=== PATIENT | male | born 1945 | race Caucasian/White ===

== ENCOUNTER → 2017-02-08 | Outpatient (REF) | payer MEDICARE | LOC: M LAB REF 16:19 | PROVIDERS: ATTEND Nurse Practitioner Adult Health | DX: D51.9 Vitamin B12 deficiency anemia, unspecified (principal) ==

== ENCOUNTER → 2017-05-09 | Outpatient (CLI) | payer MEDICARE ==
--- NOTE | 2017-05-14 18:35 | SLEEPCENT ---
DATE OF PROCEDURE: 05/09/2017 REFERRING PHYSICIAN: Ratna Juarez Nocturnal polysomnography was performed for evaluation of sleep physiology in this patient with a history of excessive somnolence and nonrestorative sleep. 8 hours and 42 minutes of data were reviewed. There were 431 minutes of sleep identified. Sleep latency was short at 9 minutes. Rapid eye movement (REM) latency was prolonged at 358 minutes. Sleep architecture initially showed poor progression with only one REM period appeciated. Overall sleep efficiency was 83%. There was a significant reduction in REM time. The patient's EKG showed a sinus rhythm with an average heart rate of 52 beats per minute. EEG showed reasonably normal waveforms for awake and sleep. There were 40 respiratory events identified of 10 seconds in duration or greater for an apnea/hypopnea index of 5.6. The events were mixed in character, not exclusive to sleep stage nor body posture. Arousals from respiratory events in total occurred 6.5 times per hour. There were no significant oxygen desaturations. There was significant limb activity, but arousals from limb events were few. IMPRESSION: Mild obstructive sleep apnea syndrome (G47.33). Apnea/hypopnea index 5.6. RECOMMENDATION: The patient should be encouraged to return to the sleep disorder center for pressure therapy. In the interim, alcohol and sedative avoidance should be practiced and caution exercised during the operation of motor vehicles.
== END ==
LOC: M SLEEP 19:29
PROVIDERS: ATTEND Nurse Practitioner Adult Health
DX: G47.30 Sleep apnea, unspecified (principal)

== ENCOUNTER → 2018-02-11 | Outpatient (REF) | payer MEDICARE ==
[2018-02-11 19:48] LABS: VITAMIN B12 LEVEL 988 PG/ML (247-911)
== END ==
LOC: M LAB REF 17:54
DX: D51.9 Vitamin B12 deficiency anemia, unspecified (principal)
CPT/HCPCS: 82607

== ENCOUNTER 2018-04-27 17:39 | Emergency (ER) | payer MEDICARE ==
[2018-04-27 18:20] LABS: BASO % 0.4 % (0.0-1.0); EOS # 0.2 10^3/uL (0.0-0.50); EOS % 1.6 % (0.0-3.0); HEMATOCRIT 36.1 % (42.0-52.0); HEMOGLOBIN 12.1 g/dl (13.5-17.5); IMMATURE GRANULOCYTE % 0.4 % (0-3.0); LYMPH # 0.5 10^3/uL (1.5-4.5); LYMPH % 5.8 % (24.0-44.0); MEAN CORPUSCULAR HEMOGLOBIN 31.4 pg (27.0-33.0); MEAN CORPUSCULAR HGB CONC 33.5 g/dl (32.0-36.5); MEAN CORPUSCULAR VOLUME 93.8 fl (80.0-96.0); MONO # 0.9 10^3/uL (0.0-0.8); MONO % 9.6 % (0.0-5.0); NEUTROPHILS # 7.7 10^3/uL (1.8-7.7); NEUTROPHILS % 82.2 % (36.0-66.0); PLATELET COUNT, AUTOMATED 232 10^3/uL (150-450); RED BLOOD COUNT 3.85 10^6/uL (4.30-6.10); RED CELL DISTRIBUTION WIDTH 11.9 % (11.5-14.5); WHITE BLOOD COUNT 9.4 10^3/uL (4.0-10.0)
[2018-04-27] MEDS: NS 500 ML IV (18:33)
[2018-04-27 18:34] LABS: INR 1.05; PARTIAL THROMBOPLASTIN TIME 23.2 SECONDS (25.4-37.6); PROTHROMBIN TIME 13.9 SECONDS (12.1-14.4)
[2018-04-27 19:04] LABS: ALBUMIN 2.8 GM/DL (3.2-5.2); ALBUMIN/GLOBULIN RATIO 0.85 (1.00-1.93); ALT/SGPT 22 U/L (12-78); ANION GAP 10 MEQ/L (8-16); AST/SGOT 22 U/L (7-37); BILIRUBIN,DIRECT 0.2 MG/DL (0.0-0.2); BILIRUBIN,TOTAL 0.6 MG/DL (0.2-1.0); BLOOD UREA NITROGEN 18 MG/DL (7-18); CALCIUM LEVEL 8.2 MG/DL (8.8-10.2); CARBON DIOXIDE LEVEL 24 MEQ/L (21-32); CHLORIDE LEVEL 106 MEQ/L (98-107); CREATININE FOR GFR 0.91 MG/DL (0.70-1.30); GLOMERULAR FILTRATION RATE > 60.0 (>42); GLUCOSE, FASTING 103 MG/DL (70-100); LIPASE 45 U/L (73-393); POTASSIUM SERUM 4.4 MEQ/L (3.5-5.1); SODIUM LEVEL 140 MEQ/L (136-145); TOTAL PROTEIN 6.1 GM/DL (6.4-8.2); TROPONIN I < 0.02 NG/ML (< 0.10)
[2018-04-27 19:09] LABS: ALKALINE PHOSPHATASE 62 U/L (45-117); CK-MB VALUE MASS 1.7 NG/ML (<3.6); CPK CREATINE PHOSPHOKINASE 287 U/L (39-308); FREE T4 1.39 NG/DL (0.76-1.46); MB/CK RELATIVE INDEX 0.59 (< OR =4); NT-PRO BNP 266 PG/ML (<125); THYROID STIMULATING HORMONE 0.995 uIU/ML (0.358-3.740)
[2018-04-27] MEDS: cefTRIAXone SOD 2 GM in D5W MINI-BAG PLUS 50 ML IV (20:17)
[2018-04-27] MEDS: AZITHROMYCIN 250 MG TAB PO (20:17)
== END 2018-04-27 21:04 | disposition home or self-care (01) ==
LOC: M ED 17:39
DX: J18.9 Pneumonia, unspecified organism (principal); I10 Essential (primary) hypertension; E78.5 Hyperlipidemia, unspecified; G47.33 Obstructive sleep apnea (adult) (pediatric)
CPT/HCPCS: J0696

== ENCOUNTER → 2018-05-09 | Outpatient (REF) | payer MEDICARE | LOC: M LAB REF 12:45 | DX: R19.7 Diarrhea, unspecified (principal) | CPT/HCPCS: 87507 ==

== ENCOUNTER → 2018-09-05 | Outpatient (REF) | payer MEDICARE ==
[~2018-09-05] MED LIST: ATOR1TAB21; AUGM875T28 PO; AZIT-12 PO; DONEPEZIL PO; LASI20TA3 PO; LOSA50TA88; POTA10TA67 PO
== END ==
LOC: M LAB REF 13:07
PROVIDERS: ATTEND Nurse Practitioner Adult Health
DX: R35.0 Frequency of micturition (principal)

== ENCOUNTER → 2018-09-26 | Outpatient (CLI) | payer MEDICARE ==
--- NOTE | 2018-09-26 13:08 | REP ---
RIGHT SHOULDER, THREE VIEWS: HISTORY: Pain. There is no acute fracture or dislocation. There is mild narrowing of the joint spaces. Calcification is present lateral to the head of the humerus. This represents ligamentous or tendon calcification. IMPRESSION:Degenerative change as described above. Electronically Signed by Noel Sawyer MD 09/26/2018 02:00 P
== END ==
LOC: M ADAMS 10:58
PROVIDERS: ATTEND Physician Assistant Medical
DX: M75.30 Calcific tendinitis of unspecified shoulder (principal); M25.511 Pain in right shoulder

== ENCOUNTER → 2019-03-31 | Outpatient (CLI) | payer MEDICARE ==
--- NOTE | 2019-03-31 12:19 | REP ---
Right rib series including PA chest: There is slight deformity of the 2nd ribs laterally bilaterally, likely congenital variation, old healed rib fractures are considered less likely. No acute rib fractures are identified. No clavicle fracture. PA chest: There is no pneumothorax, hemothorax or pulmonary contusion. Lung sierra are clear. Cardiac size is normal. The darcy and mediastinum are unremarkable. Impression: No rib fractures are identified. Negative PA chest. Electronically Signed by Sam Ureña MD 03/31/2019 12:10 P
== END ==
LOC: M ADAMS 09:44
PROVIDERS: ATTEND Physician Assistant Medical
DX: S20.211A Contusion of right front wall of thorax, initial encounter (principal); W18.30XA Fall on same level, unspecified, initial encounter; Y92.009 Unspecified place in unspecified non-institutional (private) residence as the place of occurrence of the external cause

== ENCOUNTER → 2019-10-31 | Outpatient (CLI) | payer MEDICARE ==
--- NOTE | 2019-10-31 14:12 | REP ---
Clinical: Acute bronchitis. Technique: PA and lateral views of the chest. Comparison: 04/27/2018. Findings: Cardiomegaly. Diffuse chronic interstitial changes are appreciated. Superimposed bronchitis cannot be excluded. No focal consolidation. No effusion. No pneumothorax. Impression: Chronic changes. No focal consolidation or effusion. Electronically Signed by Paulo Zazueta MD 10/31/2019 02:04 P
== END ==
LOC: M ADAMS 13:50
PROVIDERS: ATTEND Physician Assistant
DX: J20.9 Acute bronchitis, unspecified (principal)

== ENCOUNTER → 2020-09-22 | Outpatient (CLI) | payer MEDICARE ==
[~2020-09-22] MED LIST changes: +ALBU8.5H INH; +ASPI1TAB22 PO; +B-122500 PO; +MEMA7CAP PO; +MONT5TAB2 PO; +NITR0.4S14 SL; +prevagen PO
== END ==
LOC: M LABSMTC 12:48
PROVIDERS: ATTEND Anesthesiology
DX: Z01.812 Encounter for preprocedural laboratory examination (principal); Z20.822 Contact with and (suspected) exposure to COVID-19

== ENCOUNTER 2020-09-27 11:51 | Day surgery (SDC) | payer MEDICARE ==
[~2020-09-27] VITALS: Ht 167.6 cm; Wt 77.3 kg
[~2020-09-27 11:51] MED LIST changes: +NS 1,000 ML IV ONE
[2020-09-27] MEDS ORDERED: propofoL 200 MG/20 ML VIAL As Ordered ONE (13:10)
[2020-09-27] MEDS ORDERED: LIDOCAINE 2% 100MG/5ML SDV (FOR ANES.) As Ordered ONE (13:10)
--- NOTE | 2020-09-27 13:35 | ROOR ---
Patient Name: Michael Greene Procedure Date: 09/27/2020 12:45 PM Date of : 1945 Age: 75 Room: [facility] Gender: Male Note Status: Finalized Procedure: Upper GI endoscopy Indications: Dysphagia, Abnormal UGI series Providers: Marbin Dumas MD Referring MD: Jerilyn Daniel NP Requesting Provider: Medicines: Monitored Anesthesia Care Complications: No immediate complications. Procedure: Pre-Anesthesia Assessment: - Prior to the procedure, a History and Physical was performed, and patient medications and allergies were reviewed. The patient is competent. The risks and benefits of the procedure and the sedation options and risks were discussed with the patient. All questions were answered and informed consent was obtained. Patient identification and proposed procedure were verified by the physician, the nurse and the anesthesiologist in the procedure room. Mental Status Examination: alert and oriented. Airway Examination: normal oropharyngeal airway and neck mobility. Respiratory Examination: clear to auscultation. CV Examination: normal. Prophylactic Antibiotics: The patient does not require prophylactic antibiotics. Prior Anticoagulants: The patient has taken no previous anticoagulant or antiplatelet agents. ASA Grade Assessment: II - A patient with mild systemic disease. After reviewing the risks and benefits, the patient was deemed in satisfactory condition to undergo the procedure. The anesthesia plan was to use monitored anesthesia care (MAC). Immediately prior to administration of medications, the patient was re-assessed for adequacy to receive sedatives. The heart rate, respiratory rate, oxygen saturations, blood pressure, adequacy of pulmonary ventilation, and response to care were monitored throughout the procedure. The physical status of the patient was re-assessed after the procedure. The Endoscope was introduced through the mouth, and advanced to the second part of duodenum. The upper GI endoscopy was accomplished without difficulty. The patient tolerated the procedure well. Findings: LA Grade D (one or more mucosal breaks involving at least 75% of esophageal circumference) esophagitis with no bleeding was found 35 to 37 cm from the incisors. Biopsies were taken with a cold forceps for histology. Verification of patient identification for the specimen was done by the physician and nurse using the patient's name, date and medical record number. Estimated blood loss was minimal. One benign-appearing, intrinsic moderate (circumferential scarring or stenosis; an endoscope may pass) stenosis was found 35 cm from the incisors. This stenosis measured 1.2 cm (inner diameter) x 1 cm (in length). The stenosis was traversed. A TTS dilator was passed through the scope. Dilation with a 12-13.5-15 mm balloon dilator was performed to 15 mm. The dilation site was examined following endoscope reinsertion and showed mild mucosal disruption, moderate improvement in luminal narrowing and no perforation. A small hiatal hernia was present. Scattered moderate inflammation characterized by congestion (edema), erythema and granularity was found in the gastric antrum. Biopsies were taken with a cold forceps for Helicobacter pylori testing. Diffuse mucosal flattening was found in the duodenal bulb and in the second portion of the duodenum. Biopsies for histology were taken with a cold forceps for evaluation of celiac disease. Impression: - LA Grade D reflux esophagitis. Biopsied. - Benign-appearing esophageal stenosis. Dilated. - Small hiatal hernia. - Gastritis. Biopsied. - Flattened mucosa was found in the duodenum, suspicious for celiac disease. Biopsied. Recommendation: - Patient has a contact number available for emergencies. The signs and symptoms of potential delayed complications were discussed with the patient. Return to normal activities tomorrow. Written discharge instructions were provided to the patient. - High fiber diet. - Continue present medications. - Await pathology results. - Repeat upper endoscopy in 3 months to check healing and for retreatment. - Return to GI clinic in 2 months. - Return to primary care physician. Procedure Code(s): --- Professional --- 51142, Esophagogastroduodenoscopy, flexible, transoral; with transendoscopic balloon dilation of esophagus (less than 30 mm diameter) 62868, 59, Esophagogastroduodenoscopy, flexible, transoral; with biopsy, single or multiple Diagnosis Code(s): --- Professional --- K21.0, Gastro-esophageal reflux disease with esophagitis K22.2, Esophageal obstruction K44.9, Diaphragmatic hernia without obstruction or gangrene K29.70, Gastritis, unspecified, without bleeding K31.89, Other diseases of stomach and duodenum R13.10, Dysphagia, unspecified R93.3, Abnormal findings on diagnostic imaging of other parts of digestive tract CPT copyright 2019 [employer]. All rights reserved. The codes documented in this report are preliminary and upon family resource management specialist review may be revised to meet current compliance requirements. Marbin Dumas MD Marbin Dumas MD 09/27/2020 1:34:42 PM Electronically signed by Marbin Dumas MD Number of Addenda: 0 Note Initiated On: 09/27/2020 12:45 PM Estimated Blood Loss: Estimated blood loss was minimal.
[2020-09-27 13:45] VITALS: BP 165/77
== END 2020-09-27 13:58 | disposition home or self-care (01) ==
LOC: M OPP 11:51
PROVIDERS: ATTEND Internal Medicine Gastroenterology
DX: R13.10 Dysphagia, unspecified (principal); R93.3 Abnormal findings on diagnostic imaging of other parts of digestive tract; D13.1 Benign neoplasm of stomach; D13.39 Benign neoplasm of other parts of small intestine; K21.00 Gastro-esophageal reflux disease with esophagitis, without bleeding; K22.2 Esophageal obstruction; K44.9 Diaphragmatic hernia without obstruction or gangrene; K29.70 Gastritis, unspecified, without bleeding; K31.89 Other diseases of stomach and duodenum; I25.2 Old myocardial infarction; E78.5 Hyperlipidemia, unspecified; F03.90 Unspecified dementia, unspecified severity, without behavioral disturbance, psychotic disturbance, mood disturbance, and anxiety; J44.9 Chronic obstructive pulmonary disease, unspecified; Z87.891 Personal history of nicotine dependence; Z79.82 Long term (current) use of aspirin; Z79.899 Other long term (current) drug therapy; Z82.49 Family history of ischemic heart disease and other diseases of the circulatory system; Z84.1 Family history of disorders of kidney and ureter

== ENCOUNTER → 2021-01-04 | Outpatient (CLI) | payer MEDICARE ==
[~2021-01-04] MED LIST changes: -ATOR1TAB21; +ATOR1TAB21 PO; +MONT10TA10 PO; -MONT5TAB2 PO; -NS 1,000 ML IV ONE; +PANT40TA29 PO; +SUCR1ORA2 PO
== END ==
LOC: M LABSMTC 10:22
PROVIDERS: ATTEND Anesthesiology
DX: Z20.828 Contact with and (suspected) exposure to other viral communicable diseases (principal); Z11.59 Encounter for screening for other viral diseases

== ENCOUNTER 2021-01-09 08:56 | Day surgery (SDC) | payer MEDICARE ==
[~2021-01-09] VITALS: Ht 167.6 cm; Wt 77.6 kg
[~2021-01-09 08:56] MED LIST changes: +LIDOCAINE 2% 100MG/5ML SDV (FOR ANES.) As Ordered ONE; +NS 1,000 ML IV ONE; +fentaNYL 100 MCG/2 ML INJECTION (J3010) As Ordered ONE; +propofoL 500 MG/50 ML VIAL As Ordered ONE
[2021-01-09] MEDS ORDERED: propofoL 200 MG/20 ML VIAL As Ordered ONE (09:16)
--- NOTE | 2021-01-09 09:59 | ROOR ---
Patient Name: Michael Greene Procedure Date: 01/09/2021 9:25 AM Date of : 1945 Age: 75 Room: [facility] Gender: Male Note Status: Finalized Procedure: Upper GI endoscopy Indications: Dysphagia Providers: Marbin Dumas MD Referring MD: Jerilyn Daniel NP Requesting Provider: Medicines: Monitored Anesthesia Care Complications: No immediate complications. Procedure: Pre-Anesthesia Assessment: - Prior to the procedure, a History and Physical was performed, and patient medications and allergies were reviewed. The patient is competent. The risks and benefits of the procedure and the sedation options and risks were discussed with the patient. All questions were answered and informed consent was obtained. Patient identification and proposed procedure were verified by the physician, the nurse and the anesthesiologist in the procedure room. Mental Status Examination: alert and oriented. Airway Examination: normal oropharyngeal airway and neck mobility. Respiratory Examination: clear to auscultation. CV Examination: normal. Prophylactic Antibiotics: The patient does not require prophylactic antibiotics. Prior Anticoagulants: The patient has taken no previous anticoagulant or antiplatelet agents. ASA Grade Assessment: III - A patient with severe systemic disease. After reviewing the risks and benefits, the patient was deemed in satisfactory condition to undergo the procedure. The anesthesia plan was to use monitored anesthesia care (MAC). Immediately prior to administration of medications, the patient was re-assessed for adequacy to receive sedatives. The heart rate, respiratory rate, oxygen saturations, blood pressure, adequacy of pulmonary ventilation, and response to care were monitored throughout the procedure. The physical status of the patient was re-assessed after the procedure. The Endoscope was introduced through the mouth, and advanced to the second part of duodenum. The upper GI endoscopy was accomplished without difficulty. The patient tolerated the procedure well. Findings: Esophagitis with no bleeding was found in the distal esophagus. Biopsies were taken with a cold forceps for histology. Verification of patient identification for the specimen was done by the physician and nurse using the patient's name, date and medical record number. Estimated blood loss was minimal. A 10 mm scar was found in the distal esophagus. The scar tissue was healthy in appearance. Biopsies were taken with a cold forceps for histology. No gross lesions were noted in the entire examined stomach. The duodenal bulb and second portion of the duodenum were normal. Impression: - Reflux esophagitis. Rule out Bear's esophagus. Biopsied. - Scar in the distal esophagus. Biopsied. - No gross lesions in the stomach. - Normal duodenal bulb and second portion of the duodenum. Recommendation: - Patient has a contact number available for emergencies. The signs and symptoms of potential delayed complications were discussed with the patient. Return to normal activities tomorrow. Written discharge instructions were provided to the patient. - High fiber diet. - Continue present medications. - Follow an antireflux regimen. - Await pathology results. - Recommend acid suppression medication for 2 months. - Telephone GI clinic for pathology results in 2 weeks. - Return to primary care physician. - Return to GI clinic if persistent symptoms or new symptoms. Procedure Code(s): --- Professional --- 94856, Esophagogastroduodenoscopy, flexible, transoral; with biopsy, single or multiple Diagnosis Code(s): --- Professional --- K21.0, Gastro-esophageal reflux disease with esophagitis K22.8, Other specified diseases of esophagus R13.10, Dysphagia, unspecified CPT copyright 2019 [employer]. All rights reserved. The codes documented in this report are preliminary and upon marking devices assembler review may be revised to meet current compliance requirements. Marbin Dumas MD Marbin Dumas MD 01/09/2021 9:59:04 AM Electronically signed by Marbin Dumas MD Number of Addenda: 0 Note Initiated On: 01/09/2021 9:25 AM Estimated Blood Loss: Estimated blood loss was minimal.
--- NOTE | 2021-01-09 10:14 | ROOR ---
Patient Name: Michael Greene Procedure Date: 01/09/2021 9:25 AM Date of : 1945 Age: 75 Room: [facility] Gender: Male Note Status: Finalized Procedure: Colonoscopy Indications: Screening for colorectal malignant neoplasm Providers: Marbin Dumas MD Referring MD: Jerilyn Daniel NP Requesting Provider: Medicines: Monitored Anesthesia Care Complications: No immediate complications. Procedure: Pre-Anesthesia Assessment: - Prior to the procedure, a History and Physical was performed, and patient medications and allergies were reviewed. The patient is competent. The risks and benefits of the procedure and the sedation options and risks were discussed with the patient. All questions were answered and informed consent was obtained. Patient identification and proposed procedure were verified by the physician, the nurse and the anesthesiologist in the procedure room. Mental Status Examination: alert and oriented. Airway Examination: normal oropharyngeal airway and neck mobility. Respiratory Examination: clear to auscultation. CV Examination: normal. Prophylactic Antibiotics: The patient does not require prophylactic antibiotics. Prior Anticoagulants: The patient has taken no previous anticoagulant or antiplatelet agents. ASA Grade Assessment: III - A patient with severe systemic disease. After reviewing the risks and benefits, the patient was deemed in satisfactory condition to undergo the procedure. The anesthesia plan was to use monitored anesthesia care (MAC). Immediately prior to administration of medications, the patient was re-assessed for adequacy to receive sedatives. The heart rate, respiratory rate, oxygen saturations, blood pressure, adequacy of pulmonary ventilation, and response to care were monitored throughout the procedure. The physical status of the patient was re-assessed after the procedure. The Colonoscope was introduced through the anus and advanced to the terminal ileum, with identification of the appendiceal orifice and IC valve. The colonoscopy was performed without difficulty. The patient tolerated the procedure well. The quality of the bowel preparation was poor and inadequate. The terminal ileum, ileocecal valve, appendiceal orifice, and rectum were photographed. Scope insertion time was 3 minutes. Scope withdrawal time was 8 minutes. The total duration of the procedure was 12 minutes. Findings: The perianal and digital rectal examinations were normal. The terminal ileum appeared normal. A large amount of semi-liquid semi-solid stool was found from rectum to cecum, precluding visualization. Lavage of the area was performed using a large amount of sterile water, resulting in incomplete clearance with continued poor visualization. Non-bleeding external and internal hemorrhoids were found during retroflexion. The hemorrhoids were medium-sized. Impression: - Preparation of the colon was poor. - Preparation of the colon was inadequate. - The examined portion of the ileum was normal. - Stool from rectum to cecum. - Non-bleeding external and internal hemorrhoids. - No specimens collected. Recommendation: - Patient has a contact number available for emergencies. The signs and symptoms of potential delayed complications were discussed with the patient. Return to normal activities tomorrow. Written discharge instructions were provided to the patient. - High fiber diet. - Continue present medications. - Repeat colonoscopy in 1 year because the bowel preparation was poor and for screening purposes. - Return to GI clinic in 1 year. - Return to primary care physician. Procedure Code(s): --- Professional --- 06003, Colonoscopy, flexible; diagnostic, including collection of specimen(s) by brushing or washing, when performed (separate procedure) Diagnosis Code(s): --- Professional --- Z12.11, Encounter for screening for malignant neoplasm of colon K64.8, Other hemorrhoids CPT copyright 2019 [employer]. All rights reserved. The codes documented in this report are preliminary and upon service representative review may be revised to meet current compliance requirements. Marbin Dumas MD Marbin Dumas MD 01/09/2021 10:13:42 AM Electronically signed by Marbin Dumas MD Number of Addenda: 0 Note Initiated On: 01/09/2021 9:25 AM Estimated Blood Loss: Estimated blood loss: none.
[2021-01-09 10:20] VITALS: BP 137/66
== END 2021-01-09 10:36 | disposition home or self-care (01) ==
LOC: M OPP 08:56
PROVIDERS: ATTEND Internal Medicine Gastroenterology
DX: Z12.11 Encounter for screening for malignant neoplasm of colon (principal); K64.8 Other hemorrhoids; K21.00 Gastro-esophageal reflux disease with esophagitis, without bleeding; K22.8 Other specified diseases of esophagus; R13.10 Dysphagia, unspecified; I25.2 Old myocardial infarction; Z79.82 Long term (current) use of aspirin; Z79.899 Other long term (current) drug therapy; Z87.891 Personal history of nicotine dependence
CPT/HCPCS: 43239; 88305; G0121; J3010

== ENCOUNTER → 2021-03-01 | Outpatient (REF) | payer MEDICARE ==
[~2021-03-01] MED LIST changes: -LIDOCAINE 2% 100MG/5ML SDV (FOR ANES.) As Ordered ONE; -NS 1,000 ML IV ONE; -fentaNYL 100 MCG/2 ML INJECTION (J3010) As Ordered ONE; -propofoL 500 MG/50 ML VIAL As Ordered ONE
[2021-03-01 17:24] LABS: BACTERIA, URINE AUTO NEGATIVE (NEGATIVE); RBC, URINE AUTO 1 /HPF (0-3); SQUAMOUS EPITHELIAL CELL UR AU 0 /HPF (0-6); WBC, URINE AUTO 0 /HPF (0-3)
== END ==
LOC: M LAB REF 16:31
PROVIDERS: ATTEND Nurse Practitioner Adult Health
DX: R31.9 Hematuria, unspecified (principal)

== ENCOUNTER 2021-08-27 22:41 | Emergency (ER) | payer MEDICARE ==
[~2021-08-27] VITALS: Ht 167.6 cm; Wt 77.3 kg
[~2021-08-27 22:41] MED LIST changes: +LOSA50TA28; -LOSA50TA88; -MONT10TA10 PO; +MONT10TA97 PO
[2021-08-27 23:26] LABS: ABG BASE EXCESS 1.4 (-2.0-2.0); ABG HCO3 24.9 MEQ/L (22.0-26.0); ABG O2 SATURATION 97.8 % (95.0-99.0); ABG PARTIAL PRESSURE CO2 35.7 mmHg (35.0-45.0); ABG PARTIAL PRESSURE O2 109.2 mmHg (75.0-100.0); ABG STANDARD HCO3 25.7 MEQ/L (22.0-26.0); ABG pH (ARTERIAL) 7.461 UNITS (7.350-7.450)
[2021-08-27 23:41] LABS: BASO # 0.1 10^3/uL (0.0-0.2); BASO % 0.6 % (0.0-1.0); EOS # 0.3 10^3/uL (0.0-0.5); EOS % 2.8 % (0.0-3.0); HEMATOCRIT 41.2 % (42.0-52.0); HEMOGLOBIN 13.5 g/dl (13.5-17.5); LYMPH % 10.2 % (24.0-44.0); MEAN CORPUSCULAR HEMOGLOBIN 31.5 pg (27.0-33.0); MEAN CORPUSCULAR HGB CONC 32.8 g/dl (32.0-36.5); MEAN CORPUSCULAR VOLUME 96.3 fl (80.0-96.0); MONO # 0.9 10^3/uL (0.0-0.8); MONO % 9.2 % (2.0-8.0); NEUTROPHILS # 7.1 10^3/uL (1.5-8.5); NEUTROPHILS % 76.7 % (36.0-66.0); PLATELET COUNT, AUTOMATED 228 10^3/uL (150-450); RED BLOOD COUNT 4.28 10^6/uL (4.30-6.10); WHITE BLOOD COUNT 9.3 10^3/uL (4.0-10.0)
[2021-08-28 00:06] LABS: CK-MB VALUE MASS 1.2 NG/ML (<3.6); MB/CK RELATIVE INDEX 1.12 (< OR =4)
[2021-08-28 00:07] LABS: ALBUMIN 3.3 GM/DL (3.2-5.2); ALT/SGPT 21 U/L (12-78); BILIRUBIN,DIRECT 0.2 MG/DL (0.0-0.2); BILIRUBIN,TOTAL 0.4 MG/DL (0.2-1.0); BLOOD UREA NITROGEN 23 MG/DL (7-18); CALCIUM LEVEL 8.5 MG/DL (8.8-10.2); CARBON DIOXIDE LEVEL 30 MEQ/L (21-32); CHLORIDE LEVEL 107 MEQ/L (98-107); CREATININE FOR GFR 1.13 MG/DL (0.70-1.30); GLOMERULAR FILTRATION RATE > 60.0 (>42); GLUCOSE, FASTING 115 MG/DL (70-100); NT-PRO BNP 119 PG/ML (<125); POTASSIUM SERUM 4.3 MEQ/L (3.5-5.1); SODIUM LEVEL 143 MEQ/L (136-145); TOTAL PROTEIN 6.6 GM/DL (6.4-8.2)
[2021-08-28 00:08] LABS: RSV AMPLIFICATION NEGATIVE (NEGATIVE)
[2021-08-28] MEDS: ANEXSIA, NORCO 7.5MG/325MG TABLET(HYDROCODONE/APAP) PO ONE ×2 (01:50→02:39)
[2021-08-28] MEDS ORDERED: NORCO 5/325MG TABLET (BULK FOR ED) PO ONE (01:50)
[2021-08-28] MEDS ORDERED: HYDR-3713 PO (01:52)
[2021-08-28 02:10] VITALS: BP 132/70
== END 2021-08-28 03:35 | disposition home or self-care (01) ==
LOC: M ED 22:41
DX: S22.42XA Multiple fractures of ribs, left side, initial encounter for closed fracture (principal); X58.XXXA Exposure to other specified factors, initial encounter; Y92.9 Unspecified place or not applicable; Y93.9 Activity, unspecified; Y99.9 Unspecified external cause status; I70.0 Atherosclerosis of aorta; I25.10 Atherosclerotic heart disease of native coronary artery without angina pectoris; I25.2 Old myocardial infarction; J45.909 Unspecified asthma, uncomplicated; Z79.899 Other long term (current) drug therapy

== ENCOUNTER → 2022-02-14 | Outpatient (CLI) | payer MEDICARE ==
[~2022-02-14] MED LIST changes: +ADV250INH INH; +HYDR-3713 PO
== END ==
LOC: M LABSMTC 11:27
PROVIDERS: ATTEND Anesthesiology
DX: Z01.818 Encounter for other preprocedural examination (principal); Z11.52 Encounter for screening for COVID-19

== ENCOUNTER 2022-02-19 10:36 | Day surgery (SDC) | payer MEDICARE ==
[~2022-02-19] VITALS: Ht 167.6 cm; Wt 75.7 kg
[~2022-02-19 10:36] MED LIST changes: +LIDOCAINE 2% 100MG/5ML SDV (FOR ANES.) As Ordered ONE; +NS 1,000 ML IV ONE; +fentaNYL 100 MCG/2 ML INJECTION As Ordered ONE; +propofoL 500 MG/50 ML VIAL As Ordered ONE
[2022-02-19 14:00] VITALS: BP 153/70
== END 2022-02-19 14:25 | disposition home or self-care (01) ==
LOC: M OPP 10:36
PROVIDERS: ATTEND Internal Medicine Gastroenterology
DX: Z12.11 Encounter for screening for malignant neoplasm of colon (principal); D12.0 Benign neoplasm of cecum; D12.2 Benign neoplasm of ascending colon; K64.8 Other hemorrhoids; K21.00 Gastro-esophageal reflux disease with esophagitis, without bleeding; K22.2 Esophageal obstruction; R13.10 Dysphagia, unspecified
CPT/HCPCS: 43239; 43249; 45385; 88305; J3010

== ENCOUNTER 2023-01-20 21:19 | Observation (INO) | payer MEDICARE ==
[~2023-01-20] VITALS: Ht 167.6 cm; Wt 78.1 kg
[~2023-01-20 21:19] MED LIST changes: -LIDOCAINE 2% 100MG/5ML SDV (FOR ANES.) As Ordered ONE; -NS 1,000 ML IV ONE; -fentaNYL 100 MCG/2 ML INJECTION As Ordered ONE; -propofoL 500 MG/50 ML VIAL As Ordered ONE
[2023-01-20] MEDS ORDERED: ACETAMINOPHEN TAB 650MG DOSE (2X325MG) PO ONE (21:40)
[2023-01-20] MEDS ORDERED: NS 1,000 ML IV ONE (22:00)
[2023-01-20 22:10] LABS: BASO % 0.3 % (0.0-1.0); EOS # 0.1 10^3/uL (0.0-0.5); EOS % 1.1 % (0.0-3.0); HEMATOCRIT 38.9 % (42.0-52.0); HEMOGLOBIN 12.8 g/dl (13.5-17.5); LYMPH # 0.3 10^3/uL (1.5-5.0); MEAN CORPUSCULAR HEMOGLOBIN 32.1 pg (27.0-33.0); MEAN CORPUSCULAR HGB CONC 32.9 g/dl (32.0-36.5); MEAN CORPUSCULAR VOLUME 97.5 fl (80.0-96.0); MONO # 0.7 10^3/uL (0.0-0.8); MONO % 7.4 % (2.0-8.0); NEUTROPHILS # 8.3 10^3/uL (1.5-8.5); NEUTROPHILS % 87.8 % (36.0-66.0); PLATELET COUNT, AUTOMATED 191 10^3/uL (150-450); RED BLOOD COUNT 3.99 10^6/uL (4.30-6.10); WHITE BLOOD COUNT 9.4 10^3/uL (4.0-10.0)
[2023-01-20 22:35] LABS: LIPASE 15 U/L (12-53)
[2023-01-20 22:37] LABS: ALBUMIN 3.5 G/DL (3.2-5.2); ALKALINE PHOSPHATASE 69 U/L (46-116); ALT/SGPT < 9 U/L (7.0-40); AST/SGOT 20 U/L (<34); BILIRUBIN,DIRECT 0.2 MG/DL (<0.4); BILIRUBIN,TOTAL 0.6 MG/DL (0.3-1.2); BLOOD UREA NITROGEN 26 MG/DL (9-23); CALCIUM LEVEL 8.9 MG/DL (8.3-10.6); CARBON DIOXIDE LEVEL 25 MMOL/L (20-31); CHLORIDE LEVEL 105 MMOL/L (98-107); CREATININE FOR GFR 1.22 MG/DL (0.70-1.30); GLOMERULAR FILTRATION RATE > 60.0 (>42); GLUCOSE, FASTING 102 MG/DL (74-106); SODIUM LEVEL 141 MMOL/L (136-145); TOTAL PROTEIN 6.1 G/DL (5.7-8.2)
[2023-01-21] MEDS ORDERED: B-12100020 PO (02:27)
[2023-01-21] MEDS ORDERED: SYMB80INH PO (02:27)
[2023-01-21] MEDS ORDERED: FURO20TA2 PO (02:28)
[2023-01-21] MEDS ORDERED: HOME MED LIST COMPLETE! XX SCH (02:30)
[2023-01-21] MEDS ORDERED: COMBIVENT RESPIMAT 100-20MCG INHALER 4GM INH PRN (02:35)
[2023-01-21] MEDS ORDERED: BENZONATATE 100MG CAPSULE PO PRN (02:35)
[2023-01-21] MEDS: ACETAMINOPHEN TAB 650MG DOSE (2X325MG) PO PRN ×3 (04:48→21:36)
[2023-01-21 05:02] VITALS: BP 117/71
[2023-01-21 05:27] VITALS: O2SAT 92
[2023-01-21 06:00] LABS: BASO % 0.3 % (0.0-1.0); EOS % 0.5 % (0.0-3.0); HEMATOCRIT 36.2 % (42.0-52.0); HEMOGLOBIN 11.9 g/dl (13.5-17.5); LYMPH # 0.3 10^3/uL (1.5-5.0); LYMPH % 4.7 % (24.0-44.0); MEAN CORPUSCULAR HEMOGLOBIN 32.2 pg (27.0-33.0); MEAN CORPUSCULAR HGB CONC 32.9 g/dl (32.0-36.5); MEAN CORPUSCULAR VOLUME 97.8 fl (80.0-96.0); MONO # 0.7 10^3/uL (0.0-0.8); NEUTROPHILS # 5.1 10^3/uL (1.5-8.5); PLATELET COUNT, AUTOMATED 173 10^3/uL (150-450); WHITE BLOOD COUNT 6.2 10^3/uL (4.0-10.0)
[2023-01-21 06:15] LABS: INR 1.03; PROTHROMBIN TIME 13.7 SECONDS (12.5-14.5)
[2023-01-21 06:16] LABS: PARTIAL THROMBOPLASTIN TIME 29.1 SECONDS (24.8-34.2)
[2023-01-21 06:44] LABS: ALBUMIN 3.3 G/DL (3.2-5.2); ALKALINE PHOSPHATASE 59 U/L (46-116); ALT/SGPT 15 U/L (7.0-40); AST/SGOT 17 U/L (<34); BILIRUBIN,TOTAL 0.6 MG/DL (0.3-1.2); BLOOD UREA NITROGEN 26 MG/DL (9-23); CALCIUM LEVEL 8.4 MG/DL (8.3-10.6); CARBON DIOXIDE LEVEL 26 MMOL/L (20-31); CHLORIDE LEVEL 109 MMOL/L (98-107); CREATININE FOR GFR 1.14 MG/DL (0.70-1.30); GLOMERULAR FILTRATION RATE > 60.0 (>42); GLUCOSE, FASTING 109 MG/DL (74-106); MAGNESIUM LEVEL 1.9 MG/DL (1.8-2.4); POTASSIUM SERUM 3.8 MMOL/L (3.5-5.1); SODIUM LEVEL 139 MMOL/L (136-145); TOTAL PROTEIN 5.5 G/DL (5.7-8.2)
[2023-01-21] MEDS: PANTOPRAZOLE 40MG TAB (PROTONIX) PO SCH ×2 (08:42→21:24)
[2023-01-21] MEDS: ASPIRIN 325 MG TAB PO SCH (08:42)
[2023-01-21] MEDS: FUROSEMIDE 10MG PER 1/2 TABLET PO SCH (08:42)
[2023-01-21] MEDS: ENOXAPARIN 40MG/0.4ML SYRINGE (J1650 PER 10MG) SC SCH (08:43)
[2023-01-21] MEDS: NIRMATRELVIR/RITONAVIR (RENAL) CO-PACK (EUA) PO SCH ×2 (08:44→21:24)
[2023-01-21] MEDS ORDERED: NIRMATRELVIR/RITONAVIR CO-PACK (EMERGENCY USE AUTH) PO SCH (09:00)
[2023-01-21] MEDS ORDERED: MEMANTINE 5MG TABLET (NAMENDA) PO SCH (09:00)
[2023-01-21] MEDS: FORMOTEROL FUMARATE 20 MCG/2 ML INHALATION SOLUTION (PERFOROMIST) INH SCH ×2 (09:10→19:26)
[2023-01-21 10:29] LABS: D-DIMER QUANT 474.97 ng/ml (<500)
[2023-01-21] MEDS: MEMANTINE 5MG TABLET (NAMENDA) PO SCH (12:02)
[2023-01-21 15:00] VITALS: BP 121/58
[2023-01-21 21:00] VITALS: BP 133/58
[2023-01-21] MEDS: RAMELTEON 8 MG TAB (ROZEREM) PO PRN (21:25)
[2023-01-22] MEDS ORDERED: UNRESOLVED CLARIFICATION ENTRY XX SCH (00:01)
[2023-01-22 05:11] VITALS: BP 136/58
[2023-01-22] MEDS: FORMOTEROL FUMARATE 20 MCG/2 ML INHALATION SOLUTION (PERFOROMIST) INH SCH ×2 (07:26→19:13)
[2023-01-22] MEDS: PANTOPRAZOLE 40MG TAB (PROTONIX) PO SCH ×2 (08:59→20:10)
[2023-01-22] MEDS: ENOXAPARIN 40MG/0.4ML SYRINGE (J1650 PER 10MG) SC SCH (08:59)
[2023-01-22] MEDS: MEMANTINE 5MG TABLET (NAMENDA) PO SCH (09:00)
[2023-01-22] MEDS: FUROSEMIDE 10MG PER 1/2 TABLET PO SCH (09:00)
[2023-01-22] MEDS: ASPIRIN 325 MG TAB PO SCH (09:00)
[2023-01-22] MEDS: NIRMATRELVIR/RITONAVIR (RENAL) CO-PACK (EUA) PO SCH ×2 (09:01→20:10)
[2023-01-22 12:00] VITALS: BP 163/62
[2023-01-22 14:00] VITALS: BP 125/58
[2023-01-22] MEDS: RAMELTEON 8 MG TAB (ROZEREM) PO PRN (20:10)
[2023-01-22 20:30] VITALS: BP 114/54
[2023-01-23 05:25] VITALS: BP 117/61
[2023-01-23] MEDS: FORMOTEROL FUMARATE 20 MCG/2 ML INHALATION SOLUTION (PERFOROMIST) INH SCH ×2 (07:15→20:21)
[2023-01-23] MEDS: PANTOPRAZOLE 40MG TAB (PROTONIX) PO SCH ×2 (11:05→21:01)
[2023-01-23] MEDS: FUROSEMIDE 10MG PER 1/2 TABLET PO SCH (11:05)
[2023-01-23] MEDS: ENOXAPARIN 40MG/0.4ML SYRINGE (J1650 PER 10MG) SC SCH (11:05)
[2023-01-23] MEDS: MEMANTINE 5MG TABLET (NAMENDA) PO SCH (11:05)
[2023-01-23] MEDS: ASPIRIN 325 MG TAB PO SCH (11:06)
[2023-01-23] MEDS: NIRMATRELVIR/RITONAVIR (RENAL) CO-PACK (EUA) PO SCH ×2 (11:08→21:03)
[2023-01-23] MEDS: RAMELTEON 8 MG TAB (ROZEREM) PO PRN (21:01)
[2023-01-24 04:40] VITALS: BP 106/86
[2023-01-24] MEDS: FORMOTEROL FUMARATE 20 MCG/2 ML INHALATION SOLUTION (PERFOROMIST) INH SCH ×2 (08:34→20:00)
[2023-01-24] MEDS: ENOXAPARIN 40MG/0.4ML SYRINGE (J1650 PER 10MG) SC SCH (08:37)
[2023-01-24] MEDS: MEMANTINE 5MG TABLET (NAMENDA) PO SCH (08:37)
[2023-01-24] MEDS: PANTOPRAZOLE 40MG TAB (PROTONIX) PO SCH ×2 (08:37→20:02)
[2023-01-24] MEDS: ASPIRIN 325 MG TAB PO SCH (08:37)
[2023-01-24] MEDS: FUROSEMIDE 10MG PER 1/2 TABLET PO SCH (08:37)
[2023-01-24] MEDS: NIRMATRELVIR/RITONAVIR (RENAL) CO-PACK (EUA) PO SCH ×2 (08:39→20:05)
[2023-01-24] MEDS: RAMELTEON 8 MG TAB (ROZEREM) PO PRN (20:02)
[2023-01-25 05:40] VITALS: BP 118/41
[2023-01-25] MEDS: FORMOTEROL FUMARATE 20 MCG/2 ML INHALATION SOLUTION (PERFOROMIST) INH SCH ×2 (07:40→19:34)
[2023-01-25] MEDS: NIRMATRELVIR/RITONAVIR (RENAL) CO-PACK (EUA) PO SCH ×2 (10:22→21:39)
[2023-01-25] MEDS: ASPIRIN 325 MG TAB PO SCH (10:23)
[2023-01-25] MEDS: ACETAMINOPHEN TAB 650MG DOSE (2X325MG) PO PRN (10:23)
[2023-01-25] MEDS: MEMANTINE 5MG TABLET (NAMENDA) PO SCH (10:23)
[2023-01-25] MEDS: PANTOPRAZOLE 40MG TAB (PROTONIX) PO SCH ×2 (10:23→21:37)
[2023-01-25] MEDS: FUROSEMIDE 10MG PER 1/2 TABLET PO SCH (10:23)
[2023-01-25] MEDS: ENOXAPARIN 40MG/0.4ML SYRINGE (J1650 PER 10MG) SC SCH (10:24)
[2023-01-25] MEDS: RAMELTEON 8 MG TAB (ROZEREM) PO PRN (21:37)
[2023-01-26 06:31] VITALS: BP 148/67
[2023-01-26] MEDS: FORMOTEROL FUMARATE 20 MCG/2 ML INHALATION SOLUTION (PERFOROMIST) INH SCH ×2 (07:47→19:42)
[2023-01-26] MEDS: MEMANTINE 5MG TABLET (NAMENDA) PO SCH (08:54)
[2023-01-26] MEDS: ENOXAPARIN 40MG/0.4ML SYRINGE (J1650 PER 10MG) SC SCH (08:54)
[2023-01-26] MEDS: FUROSEMIDE 10MG PER 1/2 TABLET PO SCH (08:54)
[2023-01-26] MEDS: ASPIRIN 325 MG TAB PO SCH (08:54)
[2023-01-26] MEDS: PANTOPRAZOLE 40MG TAB (PROTONIX) PO SCH ×2 (08:54→22:08)
[2023-01-27 06:00] VITALS: BP 128/49
[2023-01-27] MEDS: FORMOTEROL FUMARATE 20 MCG/2 ML INHALATION SOLUTION (PERFOROMIST) INH SCH ×2 (07:10→19:15)
[2023-01-27] MEDS: MEMANTINE 5MG TABLET (NAMENDA) PO SCH (09:50)
[2023-01-27] MEDS: PANTOPRAZOLE 40MG TAB (PROTONIX) PO SCH ×2 (09:50→20:20)
[2023-01-27] MEDS: ASPIRIN 325 MG TAB PO SCH (09:50)
[2023-01-27] MEDS: ENOXAPARIN 40MG/0.4ML SYRINGE (J1650 PER 10MG) SC SCH (09:50)
[2023-01-27] MEDS: FUROSEMIDE 10MG PER 1/2 TABLET PO SCH (09:50)
[2023-01-28 06:00] VITALS: BP 117/46
[2023-01-28] MEDS: FORMOTEROL FUMARATE 20 MCG/2 ML INHALATION SOLUTION (PERFOROMIST) INH SCH ×2 (08:23→18:56)
[2023-01-28] MEDS: FUROSEMIDE 10MG PER 1/2 TABLET PO SCH (09:43)
[2023-01-28] MEDS: ASPIRIN 325 MG TAB PO SCH (09:43)
[2023-01-28] MEDS: MEMANTINE 5MG TABLET (NAMENDA) PO SCH (09:43)
[2023-01-28] MEDS: PANTOPRAZOLE 40MG TAB (PROTONIX) PO SCH ×2 (09:43→20:46)
[2023-01-28] MEDS: ENOXAPARIN 40MG/0.4ML SYRINGE (J1650 PER 10MG) SC SCH (09:44)
[2023-01-29 05:33] VITALS: BP 130/72
[2023-01-29] MEDS: FORMOTEROL FUMARATE 20 MCG/2 ML INHALATION SOLUTION (PERFOROMIST) INH SCH ×2 (07:21→19:34)
[2023-01-29] MEDS: ASPIRIN 325 MG TAB PO SCH (09:06)
[2023-01-29] MEDS: PANTOPRAZOLE 40MG TAB (PROTONIX) PO SCH ×2 (09:06→20:21)
[2023-01-29] MEDS: FUROSEMIDE 10MG PER 1/2 TABLET PO SCH (09:06)
[2023-01-29] MEDS: MEMANTINE 5MG TABLET (NAMENDA) PO SCH (09:06)
[2023-01-29] MEDS: ENOXAPARIN 40MG/0.4ML SYRINGE (J1650 PER 10MG) SC SCH (09:07)
[2023-01-30 05:47] VITALS: BP 134/59
[2023-01-30] MEDS: FUROSEMIDE 10MG PER 1/2 TABLET PO SCH (09:27)
[2023-01-30] MEDS: ENOXAPARIN 40MG/0.4ML SYRINGE (J1650 PER 10MG) SC SCH (09:27)
[2023-01-30] MEDS: ASPIRIN 325 MG TAB PO SCH (09:27)
[2023-01-30] MEDS: ATORVASTATIN 20 MG TAB PO SCH (09:28)
[2023-01-30] MEDS: MEMANTINE 5MG TABLET (NAMENDA) PO SCH (09:28)
[2023-01-30] MEDS: PANTOPRAZOLE 40MG TAB (PROTONIX) PO SCH ×2 (09:28→20:28)
[2023-01-30] MEDS: FORMOTEROL FUMARATE 20 MCG/2 ML INHALATION SOLUTION (PERFOROMIST) INH SCH ×2 (09:29→21:48)
[2023-01-31 06:00] VITALS: BP 130/57
[2023-01-31] MEDS: FORMOTEROL FUMARATE 20 MCG/2 ML INHALATION SOLUTION (PERFOROMIST) INH SCH (08:05)
[2023-01-31] MEDS: PANTOPRAZOLE 40MG TAB (PROTONIX) PO SCH (09:49)
[2023-01-31] MEDS: ASPIRIN 325 MG TAB PO SCH (09:49)
[2023-01-31] MEDS: ATORVASTATIN 20 MG TAB PO SCH (09:49)
[2023-01-31] MEDS: FUROSEMIDE 10MG PER 1/2 TABLET PO SCH (09:49)
[2023-01-31] MEDS: MEMANTINE 5MG TABLET (NAMENDA) PO SCH (09:49)
[2023-01-31] MEDS: ENOXAPARIN 40MG/0.4ML SYRINGE (J1650 PER 10MG) SC SCH (09:49)
== END 2023-01-31 13:54 ==
LOC: EDBD 21:19 → M ED 21:19 → INTOOBSV 01-21 02:31 → M ED INP 01-21 02:31 → M MSPAV 01-21 05:01
PROVIDERS: ADMIT Internal Medicine; ATTEND Internal Medicine
DX: G93.41 Metabolic encephalopathy (principal); U07.1 COVID-19; F03.90 Unspecified dementia, unspecified severity, without behavioral disturbance, psychotic disturbance, mood disturbance, and anxiety; I10 Essential (primary) hypertension; R60.0 Localized edema; E78.5 Hyperlipidemia, unspecified; I25.10 Atherosclerotic heart disease of native coronary artery without angina pectoris; J44.9 Chronic obstructive pulmonary disease, unspecified; K21.9 Gastro-esophageal reflux disease without esophagitis; Z79.02 Long term (current) use of antithrombotics/antiplatelets; Z79.899 Other long term (current) drug therapy
CPT/HCPCS: 36415; 70450; 71045; 80048; 80053; 80076; 81001; 83605; 83690; 83735; 84145; 85025; 85379; 85610; 85730; 87040; 87426; 87486; 87581; 87633; 87798; 93005; 93041; 93970; 94640; 96372; 96374; 97116; 97162; 97530; 99285; G0378; J1650; J7606

== ENCOUNTER → 2023-02-01 | Outpatient (REF) ==
[~2023-02-01] MED LIST changes: +B-12100020 PO; +FURO20TA2 PO; +SYMB80INH PO
[2023-02-01 07:24] LABS: HEMATOCRIT 37.5 % (42.0-52.0); HEMOGLOBIN 12.5 g/dl (13.5-17.5); MEAN CORPUSCULAR HEMOGLOBIN 31.8 pg (27.0-33.0); MEAN CORPUSCULAR HGB CONC 33.3 g/dl (32.0-36.5); MEAN CORPUSCULAR VOLUME 95.4 fl (80.0-96.0); PLATELET COUNT, AUTOMATED 263 10^3/uL (150-450); RED BLOOD COUNT 3.93 10^6/uL (4.30-6.10); WHITE BLOOD COUNT 6.2 10^3/uL (4.0-10.0)
[2023-02-01 07:51] LABS: BLOOD UREA NITROGEN 24 MG/DL (9-23); CALCIUM LEVEL 8.1 MG/DL (8.3-10.6); CARBON DIOXIDE LEVEL 26 MMOL/L (20-31); CHLORIDE LEVEL 105 MMOL/L (98-107); CREATININE FOR GFR 1.12 MG/DL (0.70-1.30); GLOMERULAR FILTRATION RATE > 60.0 (>42); GLUCOSE, FASTING 131 MG/DL (74-106); POTASSIUM SERUM 4.1 MMOL/L (3.5-5.1); SODIUM LEVEL 139 MMOL/L (136-145)
== END ==
PROVIDERS: ATTEND Internal Medicine
DX: G93.40 Encephalopathy, unspecified (principal)

== ENCOUNTER → 2023-02-06 | Outpatient (REF) ==
[2023-02-06 08:44] LABS: HEMATOCRIT 37.1 % (42.0-52.0); HEMOGLOBIN 12.3 g/dl (13.5-17.5); MEAN CORPUSCULAR HEMOGLOBIN 31.8 pg (27.0-33.0); MEAN CORPUSCULAR HGB CONC 33.2 g/dl (32.0-36.5); MEAN CORPUSCULAR VOLUME 95.9 fl (80.0-96.0); PLATELET COUNT, AUTOMATED 275 10^3/uL (150-450); RED BLOOD COUNT 3.87 10^6/uL (4.30-6.10); WHITE BLOOD COUNT 6.1 10^3/uL (4.0-10.0)
[2023-02-06 09:16] LABS: BLOOD UREA NITROGEN 19 MG/DL (9-23); CALCIUM LEVEL 8.1 MG/DL (8.3-10.6); CARBON DIOXIDE LEVEL 26 MMOL/L (20-31); CHLORIDE LEVEL 105 MMOL/L (98-107); CREATININE FOR GFR 0.96 MG/DL (0.70-1.30); GLOMERULAR FILTRATION RATE > 60.0 (>42); GLUCOSE, FASTING 92 MG/DL (74-106); POTASSIUM SERUM 4.1 MMOL/L (3.5-5.1); SODIUM LEVEL 141 MMOL/L (136-145)
== END ==
PROVIDERS: ATTEND Internal Medicine
DX: G93.40 Encephalopathy, unspecified (principal)

== ENCOUNTER → 2023-02-18 | Outpatient (REF) ==
[2023-02-18 11:40] LABS: HEMATOCRIT 39.2 % (42.0-52.0); HEMOGLOBIN 12.7 g/dl (13.5-17.5); MEAN CORPUSCULAR HEMOGLOBIN 31.5 pg (27.0-33.0); MEAN CORPUSCULAR HGB CONC 32.4 g/dl (32.0-36.5); MEAN CORPUSCULAR VOLUME 97.3 fl (80.0-96.0); PLATELET COUNT, AUTOMATED 284 10^3/uL (150-450); RED BLOOD COUNT 4.03 10^6/uL (4.30-6.10); WHITE BLOOD COUNT 6.2 10^3/uL (4.0-10.0)
[2023-02-18 12:00] LABS: BLOOD UREA NITROGEN 15 MG/DL (9-23); CALCIUM LEVEL 8.2 MG/DL (8.3-10.6); CARBON DIOXIDE LEVEL 27 MMOL/L (20-31); CHLORIDE LEVEL 107 MMOL/L (98-107); CREATININE FOR GFR 1.14 MG/DL (0.70-1.30); GLOMERULAR FILTRATION RATE > 60.0 (>42); GLUCOSE, FASTING 108 MG/DL (74-106); POTASSIUM SERUM 4.3 MMOL/L (3.5-5.1); SODIUM LEVEL 141 MMOL/L (136-145)
== END ==
PROVIDERS: ATTEND Internal Medicine
DX: I10 Essential (primary) hypertension (principal)

== ENCOUNTER → 2023-04-10 | Outpatient (REF) | payer MEDICARE ==
[2023-04-10 11:03] LABS: HEMATOCRIT 38.5 % (42.0-52.0); HEMOGLOBIN 12.3 g/dl (13.5-17.5); MEAN CORPUSCULAR HEMOGLOBIN 31.5 pg (27.0-33.0); MEAN CORPUSCULAR HGB CONC 31.9 g/dl (32.0-36.5); MEAN CORPUSCULAR VOLUME 98.5 fl (80.0-96.0); PLATELET COUNT, AUTOMATED 282 10^3/uL (150-450); RED BLOOD COUNT 3.91 10^6/uL (4.30-6.10)
[2023-04-10 11:25] LABS: ALBUMIN 2.7 G/DL (3.2-5.2); ALKALINE PHOSPHATASE 229 U/L (46-116); ALT/SGPT 78 U/L (7.0-40); AST/SGOT 32 U/L (<34); BILIRUBIN,TOTAL 0.4 MG/DL (0.3-1.2); BLOOD UREA NITROGEN 18 MG/DL (9-23); CALCIUM LEVEL 8.8 MG/DL (8.3-10.6); CARBON DIOXIDE LEVEL 27 MMOL/L (20-31); CHLORIDE LEVEL 103 MMOL/L (98-107); GLOMERULAR FILTRATION RATE > 60.0 (>42); GLUCOSE, FASTING 108 MG/DL (74-106); POTASSIUM SERUM 4.2 MMOL/L (3.5-5.1); SODIUM LEVEL 139 MMOL/L (136-145); TOTAL PROTEIN 5.7 G/DL (5.7-8.2)
== END ==
LOC: SKLAB8 10:10
PROVIDERS: ATTEND Internal Medicine
DX: N39.0 Urinary tract infection, site not specified (principal)

== ENCOUNTER → 2023-04-18 | Outpatient (CLI) | payer MEDICAID, MEDICARE, OTHER | LOC: M RAD 15:34 | PROVIDERS: ATTEND Nurse Practitioner Adult Health | DX: R41.82 Altered mental status, unspecified (principal); M25.552 Pain in left hip; M25.562 Pain in left knee ==

== ENCOUNTER → 2023-04-22 | Outpatient (REF) | payer OTHER ==
[2023-04-22 08:24] LABS: HEMATOCRIT 40.4 % (42.0-52.0); HEMOGLOBIN 12.9 g/dl (13.5-17.5); MEAN CORPUSCULAR HEMOGLOBIN 31.2 pg (27.0-33.0); MEAN CORPUSCULAR HGB CONC 31.9 g/dl (32.0-36.5); MEAN CORPUSCULAR VOLUME 97.6 fl (80.0-96.0); PLATELET COUNT, AUTOMATED 279 10^3/uL (150-450); RED BLOOD COUNT 4.14 10^6/uL (4.30-6.10); WHITE BLOOD COUNT 7.1 10^3/uL (4.0-10.0)
[2023-04-22 08:58] LABS: ALKALINE PHOSPHATASE 125 U/L (46-116); ALT/SGPT 25 U/L (7.0-40); AST/SGOT 10 U/L (<34); BILIRUBIN,TOTAL 0.5 MG/DL (0.3-1.2); BLOOD UREA NITROGEN 16 MG/DL (9-23); CARBON DIOXIDE LEVEL 24 MMOL/L (20-31); CHLORIDE LEVEL 108 MMOL/L (98-107); CREATININE FOR GFR 0.73 MG/DL (0.70-1.30); GLOMERULAR FILTRATION RATE > 60.0 (>42); GLUCOSE, FASTING 104 MG/DL (74-106); POTASSIUM SERUM 4.4 MMOL/L (3.5-5.1); SODIUM LEVEL 142 MMOL/L (136-145); TOTAL PROTEIN 5.7 G/DL (5.7-8.2)
== END ==
LOC: SKLAB8 04-21 07:00
PROVIDERS: ATTEND Internal Medicine
DX: R29.6 Repeated falls (principal)

== ENCOUNTER → 2023-04-23 | Outpatient (REF) | payer OTHER | LOC: SKLAB8 07:00 | PROVIDERS: ATTEND Internal Medicine | DX: R29.6 Repeated falls (principal) ==

== ENCOUNTER → 2023-04-25 | Outpatient (REF) | payer OTHER | LOC: SKLAB2 11:03 | PROVIDERS: ATTEND Internal Medicine | DX: R00.1 Bradycardia, unspecified (principal) ==

== ENCOUNTER → 2023-08-01 | Outpatient (REF) | payer OTHER ==
[2023-08-01 10:12] LABS: HEMATOCRIT 39.7 % (42.0-52.0); MEAN CORPUSCULAR HEMOGLOBIN 32.4 pg (27.0-33.0); MEAN CORPUSCULAR HGB CONC 32.7 g/dl (32.0-36.5); PLATELET COUNT, AUTOMATED 257 10^3/uL (150-450); RED BLOOD COUNT 4.01 10^6/uL (4.30-6.10); WHITE BLOOD COUNT 8.4 10^3/uL (4.0-10.0)
[2023-08-01 10:40] LABS: BLOOD UREA NITROGEN 28 MG/DL (9-23); CARBON DIOXIDE LEVEL 30 MMOL/L (20-31); CHLORIDE LEVEL 107 MMOL/L (98-107); CREATININE FOR GFR 0.92 MG/DL (0.70-1.30); GLOMERULAR FILTRATION RATE > 60.0 (>42); GLUCOSE, FASTING 111 MG/DL (74-106); POTASSIUM SERUM 4.2 MMOL/L (3.5-5.1); SODIUM LEVEL 141 MMOL/L (136-145)
== END ==
LOC: SKLAB8 07:06
PROVIDERS: ATTEND Internal Medicine
DX: R09.89 Other specified symptoms and signs involving the circulatory and respiratory systems (principal)

== ENCOUNTER → 2023-10-29 | Outpatient (REF) | payer OTHER ==
[2023-10-29 16:37] LABS: HEMATOCRIT 39.6 % (42.0-52.0); HEMOGLOBIN 13.3 g/dl (13.5-17.5); MEAN CORPUSCULAR HEMOGLOBIN 32.8 pg (27.0-33.0); MEAN CORPUSCULAR HGB CONC 33.6 g/dl (32.0-36.5); MEAN CORPUSCULAR VOLUME 97.5 fl (80.0-96.0); PLATELET COUNT, AUTOMATED 204 10^3/uL (150-450); RED BLOOD COUNT 4.06 10^6/uL (4.30-6.10)
[2023-10-29 17:03] LABS: BLOOD UREA NITROGEN 30 MG/DL (9-23); CALCIUM LEVEL 8.3 MG/DL (8.3-10.6); CARBON DIOXIDE LEVEL 28 MMOL/L (20-31); CHLORIDE LEVEL 108 MMOL/L (98-107); CREATININE FOR GFR 0.91 MG/DL (0.70-1.30); GLOMERULAR FILTRATION RATE > 60.0 (>42); GLUCOSE, FASTING 106 MG/DL (74-106); POTASSIUM SERUM 4.5 MMOL/L (3.5-5.1); SODIUM LEVEL 141 MMOL/L (136-145)
== END ==
LOC: SKLAB8 15:20
PROVIDERS: ATTEND Internal Medicine
DX: F03.90 Unspecified dementia, unspecified severity, without behavioral disturbance, psychotic disturbance, mood disturbance, and anxiety (principal)

== ENCOUNTER → 2023-12-05 | Outpatient (REF) | payer OTHER ==
[2023-12-05 09:52] LABS: HEMATOCRIT 40.5 % (42.0-52.0); HEMOGLOBIN 13.4 g/dl (13.5-17.5); MEAN CORPUSCULAR HEMOGLOBIN 32.1 pg (27.0-33.0); MEAN CORPUSCULAR HGB CONC 33.1 g/dl (32.0-36.5); MEAN CORPUSCULAR VOLUME 97.1 fl (80.0-96.0); PLATELET COUNT, AUTOMATED 247 10^3/uL (150-450); RED BLOOD COUNT 4.17 10^6/uL (4.30-6.10); WHITE BLOOD COUNT 6.5 10^3/uL (4.0-10.0)
[2023-12-05 10:27] LABS: BLOOD UREA NITROGEN 29 MG/DL (9-23); CALCIUM LEVEL 8.9 MG/DL (8.3-10.6); CARBON DIOXIDE LEVEL 28 MMOL/L (20-31); CHLORIDE LEVEL 108 MMOL/L (98-107); GLOMERULAR FILTRATION RATE > 60.0 (>42); GLUCOSE, FASTING 105 MG/DL (74-106); POTASSIUM SERUM 4.2 MMOL/L (3.5-5.1); SODIUM LEVEL 141 MMOL/L (136-145)
== END ==
LOC: SKLAB8 07:00
PROVIDERS: ATTEND Internal Medicine
DX: R09.89 Other specified symptoms and signs involving the circulatory and respiratory systems (principal)

== ENCOUNTER → 2024-04-02 | Outpatient (REF) | payer OTHER ==
[2024-04-02 10:30] LABS: HEMATOCRIT 44.9 % (42.0-52.0); HEMOGLOBIN 14.6 g/dl (13.5-17.5); MEAN CORPUSCULAR HEMOGLOBIN 32.7 pg (27.0-33.0); MEAN CORPUSCULAR HGB CONC 32.5 g/dl (32.0-36.5); MEAN CORPUSCULAR VOLUME 100.7 fl (80.0-96.0); PLATELET COUNT, AUTOMATED 215 10^3/uL (150-450); RED BLOOD COUNT 4.46 10^6/uL (4.30-6.10); WHITE BLOOD COUNT 7.5 10^3/uL (4.0-10.0)
[2024-04-02 10:58] LABS: VITAMIN B12 LEVEL 908 PG/ML (211-911)
[2024-04-02 11:00] LABS: BLOOD UREA NITROGEN 25 MG/DL (9-23); CALCIUM LEVEL 9.6 MG/DL (8.3-10.6); CARBON DIOXIDE LEVEL 27 MMOL/L (20-31); CHLORIDE LEVEL 109 MMOL/L (98-107); CHOLESTEROL LEVEL 130 MG/DL (<200); CHOLESTEROL RISK RATIO 3.57 (<5); CREATININE FOR GFR 0.98 MG/DL (0.70-1.30); GLOMERULAR FILTRATION RATE > 60.0 (>42); GLUCOSE, FASTING 138 MG/DL (74-106); HDL CHOLESTEROL 36.4 MG/DL (>40); LDL CHOLESTEROL 77.6 MG/DL (<100); NON-HDL-C 93.6 MG/DL; POTASSIUM SERUM 4.3 MMOL/L (3.5-5.1); SODIUM LEVEL 142 MMOL/L (136-145); TRIGLYCERIDES LEVEL 80 MG/DL (<150)
== END ==
LOC: SKLAB8 07:20
PROVIDERS: ATTEND Internal Medicine
DX: E78.5 Hyperlipidemia, unspecified (principal); I10 Essential (primary) hypertension

== ENCOUNTER → 2024-04-20 | Outpatient (CLI) | payer MEDICAID, MEDICARE, OTHER | LOC: M RAD 09:05 | PROVIDERS: ATTEND Nurse Practitioner | DX: J34.1 Cyst and mucocele of nose and nasal sinus (principal) ==

== ENCOUNTER → 2024-06-10 | Outpatient (CLI) | payer MEDICARE | LOC: M RAD 11:11 | PROVIDERS: ATTEND Nurse Practitioner | DX: M79.672 Pain in left foot (principal); S92.325A Nondisplaced fracture of second metatarsal bone, left foot, initial encounter for closed fracture; S92.335A Nondisplaced fracture of third metatarsal bone, left foot, initial encounter for closed fracture; S92.345A Nondisplaced fracture of fourth metatarsal bone, left foot, initial encounter for closed fracture; S92.355A Nondisplaced fracture of fifth metatarsal bone, left foot, initial encounter for closed fracture; X58.XXXA Exposure to other specified factors, initial encounter; Y92.9 Unspecified place or not applicable ==

== ENCOUNTER → 2024-06-26 | Outpatient (CLI) | payer MEDICARE | LOC: M SOG 07:57 | PROVIDERS: ATTEND Physician Assistant | DX: S92.325A Nondisplaced fracture of second metatarsal bone, left foot, initial encounter for closed fracture (principal); M85.872 Other specified disorders of bone density and structure, left ankle and foot; X58.XXXA Exposure to other specified factors, initial encounter; Y92.9 Unspecified place or not applicable; Y93.9 Activity, unspecified; Y99.9 Unspecified external cause status; S92.332A Displaced fracture of third metatarsal bone, left foot, initial encounter for closed fracture; S92.345A Nondisplaced fracture of fourth metatarsal bone, left foot, initial encounter for closed fracture; S92.355A Nondisplaced fracture of fifth metatarsal bone, left foot, initial encounter for closed fracture ==

== ENCOUNTER → 2024-07-03 | Outpatient (REF) | payer MEDICARE ==
[2024-07-03 09:58] LABS: HEMATOCRIT 41.4 % (42.0-52.0); HEMOGLOBIN 13.4 g/dl (13.5-17.5); MEAN CORPUSCULAR HEMOGLOBIN 32.4 pg (27.0-33.0); MEAN CORPUSCULAR HGB CONC 32.4 g/dl (32.0-36.5); PLATELET COUNT, AUTOMATED 214 10^3/uL (150-450); RED BLOOD COUNT 4.14 10^6/uL (4.30-6.10); WHITE BLOOD COUNT 6.7 10^3/uL (4.0-10.0)
[2024-07-03 10:33] LABS: BLOOD UREA NITROGEN 30 MG/DL (9-23); CALCIUM LEVEL 9.2 MG/DL (8.3-10.6); CARBON DIOXIDE LEVEL 29 MMOL/L (20-31); CHLORIDE LEVEL 112 MMOL/L (98-107); CREATININE FOR GFR 0.95 MG/DL (0.70-1.30); GLOMERULAR FILTRATION RATE > 60.0 (>42); GLUCOSE, FASTING 109 MG/DL (74-106); POTASSIUM SERUM 4.3 MMOL/L (3.5-5.1); SODIUM LEVEL 144 MMOL/L (136-145)
== END ==
LOC: SKLAB8 06:50
PROVIDERS: ATTEND Internal Medicine
DX: I10 Essential (primary) hypertension (principal)

== ENCOUNTER → 2024-07-15 | Outpatient (REF) | payer MEDICARE ==
[2024-07-15 12:35] LABS: HEMATOCRIT 38.7 % (42.0-52.0); HEMOGLOBIN 13.1 g/dl (13.5-17.5); MEAN CORPUSCULAR HEMOGLOBIN 32.9 pg (27.0-33.0); MEAN CORPUSCULAR HGB CONC 33.9 g/dl (32.0-36.5); MEAN CORPUSCULAR VOLUME 97.2 fl (80.0-96.0); PLATELET COUNT, AUTOMATED 211 10^3/uL (150-450); RED BLOOD COUNT 3.98 10^6/uL (4.30-6.10); WHITE BLOOD COUNT 7.4 10^3/uL (4.0-10.0)
[2024-07-15 13:03] LABS: ALBUMIN 3.1 G/DL (3.2-5.2); ALKALINE PHOSPHATASE 65 U/L (40-129); ALT/SGPT 15 U/L (7.0-40); AST/SGOT 9 U/L (<34); BILIRUBIN,TOTAL 0.4 MG/DL (0.3-1.2); BLOOD UREA NITROGEN 26 MG/DL (9-23); CALCIUM LEVEL 9.1 MG/DL (8.3-10.6); CARBON DIOXIDE LEVEL 26 MMOL/L (20-31); CHLORIDE LEVEL 111 MMOL/L (98-107); CREATININE FOR GFR 0.88 MG/DL (0.70-1.30); GLOMERULAR FILTRATION RATE > 60.0 (>42); GLUCOSE, FASTING 119 MG/DL (74-106); POTASSIUM SERUM 4.6 MMOL/L (3.5-5.1); SODIUM LEVEL 142 MMOL/L (136-145); TOTAL PROTEIN 5.9 G/DL (5.7-8.2)
== END ==
LOC: SKLAB8 12:07
PROVIDERS: ATTEND Internal Medicine
DX: R41.82 Altered mental status, unspecified (principal)

== ENCOUNTER → 2024-07-24 | Outpatient (CLI) | payer MEDICARE | LOC: M SOG 08:10 | PROVIDERS: ATTEND Physician Assistant | DX: S92.325D Nondisplaced fracture of second metatarsal bone, left foot, subsequent encounter for fracture with routine healing (principal) ==

== ENCOUNTER → 2024-08-24 | Outpatient (CLI) | payer MEDICARE ==
[~2024-08-24] MED LIST changes: -ADV250INH INH; +ADVA1AER9 INH
== END ==
LOC: M SOG 07:55
PROVIDERS: ATTEND Physician Assistant
DX: S92.325D Nondisplaced fracture of second metatarsal bone, left foot, subsequent encounter for fracture with routine healing (principal)

== ENCOUNTER → 2024-09-29 | Outpatient (CLI) | payer MEDICARE | LOC: M RAD 10:50 | PROVIDERS: ATTEND Nurse Practitioner Adult Health | DX: M25.551 Pain in right hip (principal) ==

== ENCOUNTER → 2024-11-13 | Outpatient (REF) | payer MEDICARE ==
[2024-11-13 11:28] LABS: HEMATOCRIT 41.8 % (42.0-52.0); HEMOGLOBIN 13.8 g/dl (13.5-17.5); MEAN CORPUSCULAR HEMOGLOBIN 32.5 pg (27.0-33.0); MEAN CORPUSCULAR VOLUME 98.4 fl (80.0-96.0); PLATELET COUNT, AUTOMATED 198 10^3/uL (150-450); RED BLOOD COUNT 4.25 10^6/uL (4.30-6.10); WHITE BLOOD COUNT 6.9 10^3/uL (4.0-10.0)
[2024-11-13 11:53] LABS: BLOOD UREA NITROGEN 27 MG/DL (9-23); CALCIUM LEVEL 8.8 MG/DL (8.3-10.6); CARBON DIOXIDE LEVEL 27 MMOL/L (20-31); CHLORIDE LEVEL 105 MMOL/L (98-107); CREATININE FOR GFR 0.94 MG/DL (0.70-1.30); GLOMERULAR FILTRATION RATE > 60.0 (>42); GLUCOSE, FASTING 95 MG/DL (74-106); POTASSIUM SERUM 3.8 MMOL/L (3.5-5.1); SODIUM LEVEL 144 MMOL/L (136-145)
== END ==
LOC: SKLAB8 10:39
PROVIDERS: ATTEND Internal Medicine
DX: R41.82 Altered mental status, unspecified (principal); S09.90XA Unspecified injury of head, initial encounter; W19.XXXA Unspecified fall, initial encounter

== ENCOUNTER → 2024-11-13 | Outpatient (CLI) | payer MEDICARE | LOC: M RAD 15:04 | PROVIDERS: ATTEND Nurse Practitioner | DX: S09.90XA Unspecified injury of head, initial encounter (principal); W19.XXXA Unspecified fall, initial encounter ==

== ENCOUNTER → 2024-12-08 | Outpatient (REF) | payer MEDICARE ==
[2024-12-08 12:00] LABS: HEMATOCRIT 41.7 % (42.0-52.0); HEMOGLOBIN 13.9 g/dl (13.5-17.5); MEAN CORPUSCULAR HEMOGLOBIN 31.8 pg (27.0-33.0); MEAN CORPUSCULAR HGB CONC 33.3 g/dl (32.0-36.5); MEAN CORPUSCULAR VOLUME 95.4 fl (80.0-96.0); PLATELET COUNT, AUTOMATED 226 10^3/uL (150-450); RED BLOOD COUNT 4.37 10^6/uL (4.30-6.10)
[2024-12-08 12:14] LABS: BLOOD UREA NITROGEN 21 MG/DL (9-23); CARBON DIOXIDE LEVEL 27 MMOL/L (20-31); CHLORIDE LEVEL 108 MMOL/L (98-107); CREATININE FOR GFR 0.91 MG/DL (0.70-1.30); GLOMERULAR FILTRATION RATE > 60.0 (>42); GLUCOSE, FASTING 107 MG/DL (74-106); POTASSIUM SERUM 4.2 MMOL/L (3.5-5.1); SODIUM LEVEL 142 MMOL/L (136-145)
== END ==
LOC: SKLAB8 10:39
PROVIDERS: ATTEND Internal Medicine
DX: R41.82 Altered mental status, unspecified (principal)

== ENCOUNTER → 2024-12-31 | Outpatient (REF) | payer MEDICARE ==
[2024-12-31 07:49] LABS: HEMOGLOBIN 12.2 g/dl (13.5-17.5); MEAN CORPUSCULAR HEMOGLOBIN 31.4 pg (27.0-33.0); MEAN CORPUSCULAR VOLUME 95.4 fl (80.0-96.0); PLATELET COUNT, AUTOMATED 241 10^3/uL (150-450); RED BLOOD COUNT 3.88 10^6/uL (4.30-6.10); WHITE BLOOD COUNT 7.7 10^3/uL (4.0-10.0)
[2024-12-31 08:24] LABS: BLOOD UREA NITROGEN 21 MG/DL (9-23); CALCIUM LEVEL 8.3 MG/DL (8.3-10.6); CARBON DIOXIDE LEVEL 27 MMOL/L (20-31); CHLORIDE LEVEL 107 MMOL/L (98-107); CREATININE FOR GFR 0.79 MG/DL (0.70-1.30); GLOMERULAR FILTRATION RATE > 90.0 (>42); GLUCOSE, FASTING 97 MG/DL (74-106); POTASSIUM SERUM 4.2 MMOL/L (3.5-5.1); SODIUM LEVEL 141 MMOL/L (136-145)
== END ==
LOC: SKLAB8 07:00
PROVIDERS: ATTEND Internal Medicine
DX: I10 Essential (primary) hypertension (principal)

== ENCOUNTER → 2025-03-31 | Outpatient (REF) | payer MEDICARE ==
[~2025-03-31] MED LIST changes: -SUCR1ORA2 PO; +SUCR1ORA20 PO
[2025-03-31 15:14] LABS: CHOLESTEROL LEVEL 107.0 MG/DL (<200); CHOLESTEROL RISK RATIO 3.3 (<5); LDL CHOLESTEROL 42.6 MG/DL (<100); NON-HDL-C 74.6 MG/DL; TRIGLYCERIDES LEVEL 160.0 MG/DL (<150)
== END ==
LOC: SKLAB8 13:56
PROVIDERS: ATTEND Internal Medicine
DX: E78.5 Hyperlipidemia, unspecified (principal)

== ENCOUNTER → 2025-04-01 | Outpatient (REF) | payer MEDICARE | LOC: SKLAB8 07:00 | PROVIDERS: ATTEND Internal Medicine | DX: E78.5 Hyperlipidemia, unspecified (principal); E53.8 Deficiency of other specified B group vitamins ==

== ENCOUNTER → 2025-05-06 | Outpatient (REF) | payer MEDICARE ==
[2025-05-06 08:48] LABS: PLATELET COUNT, AUTOMATED 237 10^3/uL (150-450)
[2025-05-06 09:17] LABS: CALCIUM LEVEL 8.8 MG/DL (8.3-10.6); CARBON DIOXIDE LEVEL 26 MMOL/L (20-31); CHLORIDE LEVEL 108 MMOL/L (98-107); CREATININE FOR GFR 0.77 MG/DL (0.70-1.30); GLOMERULAR FILTRATION RATE > 90.0 (>42); POTASSIUM SERUM 4.6 MMOL/L (3.5-5.1); SODIUM LEVEL 145 MMOL/L (136-145)
== END ==
LOC: SKLAB8 06:50
PROVIDERS: ATTEND Internal Medicine
DX: I10 Essential (primary) hypertension (principal)